=== PATIENT | female | born 1945 | race Two or more races ===

== ENCOUNTER 2018-03-05 14:15 | Outpatient (CLI) | payer OTHER | END 2018-03-05 14:22 | disposition home or self-care (01) | LOC: RAD 501 14:15 | DX: M25.512 Pain in left shoulder (principal) ==

== ENCOUNTER 2020-03-29 12:32 | Outpatient (CLI) | payer OTHER | END 2020-03-29 13:00 | disposition home or self-care (01) | LOC: RAD 12:32 | PROVIDERS: ATTEND Orthopaedic Surgery | DX: M25.561 Pain in right knee (principal); M25.562 Pain in left knee ==

== ENCOUNTER 2023-06-17 12:16 | Emergency (ER) | payer OTHER ==
[~2023-06-17] VITALS: Ht 157.5 cm; Wt 79.4 kg
[2023-06-17] MEDS ORDERED: NORVASC5 MG (13:32)
[2023-06-17] MEDS ORDERED: NEURONTIN800 MG (13:32)
[2023-06-17] MEDS ORDERED: TOPROL XL25 M1 (13:32)
[2023-06-17] MEDS ORDERED: KETOROLAC TROMETHAMINE 60 MG VIAL IM ONE (14:15)
[2023-06-17] MEDS ORDERED: DEXAMETHASONE SODIUM PHOSPHATE 4 MG/ML VIAL IM STA (17:49)
== END 2023-06-17 18:01 | disposition home or self-care (01) ==
LOC: ER 12:16
DX: M25.551 Pain in right hip (principal); Z88.8 Allergy status to other drugs, medicaments and biological substances; I10 Essential (primary) hypertension
CPT/HCPCS: 73502; 96372; 99282; J1100; J1885

== ENCOUNTER 2024-04-13 09:29 | Outpatient (CLI) | payer OTHER ==
[~2024-04-13 09:29] MED LIST: NEURONTIN800 MG; NORVASC5 MG; TOPROL XL25 M1
== END 2024-04-13 09:32 | disposition home or self-care (01) ==
LOC: SONOGRAMA 09:29
PROVIDERS: ATTEND Pathology Anatomic Pathology & Clinical Pathology
DX: E04.1 Nontoxic single thyroid nodule (principal)